=== PATIENT | male | born 1935 | race Caucasian/White ===

== ENCOUNTER 2017-07-09 21:17 | Inpatient (IN) | payer OTHER ==
[~2017-07-09] VITALS: Ht 152.4 cm; Wt 44.5 kg
[2017-07-09] MEDS ORDERED: LASIX20 MG (21:35)
[2017-07-09] MEDS ORDERED: TOPROL XL50 MG (21:36)
[2017-07-09] MEDS ORDERED: SYNTHROID50 MCG (21:36)
[2017-07-09] MEDS ORDERED: LIPITOR40 MG (21:37)
[2017-07-31] MEDS ORDERED: XOPENEX0.63 MG/3 IH (19:09)
== END 2017-07-31 19:32 | disposition home or self-care (01) | DRG 291 ==
LOC: ER 21:17 → ICU-2 07-10 13:09 → MEDI 07-10 13:09 → SEC-K 07-10 13:09 → MEDI 07-12 17:36
PROC: 3E0F7GC Introduction of Other Therapeutic Substance into Respiratory Tract, Via Natural or Artificial Opening (ICD-10-PCS; principal; 2017-07-10)
PROC: B246ZZZ Ultrasonography of Right and Left Heart (ICD-10-PCS; 2017-07-10)
PROC: 4A033R1 Measurement of Arterial Saturation, Peripheral, Percutaneous Approach (ICD-10-PCS; 2017-07-10)
PROC: BW24ZZZ Computerized Tomography (CT Scan) of Chest and Abdomen (ICD-10-PCS; 2017-07-10)
PROC: BT43ZZZ Ultrasonography of Bilateral Kidneys (ICD-10-PCS; 2017-07-12)
PROC: 4A12X4Z Monitoring of Cardiac Electrical Activity, External Approach (ICD-10-PCS; 2017-07-12)
PROC: 05HM33Z Insertion of Infusion Device into Right Internal Jugular Vein, Percutaneous Approach (ICD-10-PCS; 2017-07-13)
PROC: B543ZZA Ultrasonography of Right Jugular Veins, Guidance (ICD-10-PCS; 2017-07-13)
PROC: 0W993ZX Drainage of Right Pleural Cavity, Percutaneous Approach, Diagnostic (ICD-10-PCS; 2017-07-13)
PROC: 5A1D70Z Performance of Urinary Filtration, Intermittent, Less than 6 Hours Per Day (ICD-10-PCS; 2017-07-13)
PROC: BW21ZZZ Computerized Tomography (CT Scan) of Abdomen and Pelvis (ICD-10-PCS; 2017-07-13)
PROC: 05PYX3Z Removal of Infusion Device from Upper Vein, External Approach (ICD-10-PCS; 2017-07-14)
PROC: 05HM33Z Insertion of Infusion Device into Right Internal Jugular Vein, Percutaneous Approach (ICD-10-PCS; 2017-07-14)
PROC: BB24ZZZ Computerized Tomography (CT Scan) of Bilateral Lungs (ICD-10-PCS; 2017-07-16)
PROC: 02HV33Z Insertion of Infusion Device into Superior Vena Cava, Percutaneous Approach (ICD-10-PCS; 2017-07-18)
PROC: B54NZZZ Ultrasonography of Left Upper Extremity Veins (ICD-10-PCS; 2017-07-23)
PROC: 05PYX3Z Removal of Infusion Device from Upper Vein, External Approach (ICD-10-PCS; 2017-07-29)
PROC: 05HM33Z Insertion of Infusion Device into Right Internal Jugular Vein, Percutaneous Approach (ICD-10-PCS; 2017-07-29)
PROC: B513ZZA Fluoroscopy of Right Jugular Veins, Guidance (ICD-10-PCS; 2017-07-29)
DX: I13.2 Hypertensive heart and chronic kidney disease with heart failure and with stage 5 chronic kidney disease, or end stage renal disease (principal); N18.6 End stage renal disease; I50.33 Acute on chronic diastolic (congestive) heart failure; J18.9 Pneumonia, unspecified organism; J90 Pleural effusion, not elsewhere classified; N17.8 Other acute kidney failure; E46 Unspecified protein-calorie malnutrition; R09.02 Hypoxemia; I35.0 Nonrheumatic aortic (valve) stenosis; I34.0 Nonrheumatic mitral (valve) insufficiency; I25.10 Atherosclerotic heart disease of native coronary artery without angina pectoris; D63.1 Anemia in chronic kidney disease; D50.8 Other iron deficiency anemias; N28.89 Other specified disorders of kidney and ureter

== ENCOUNTER 2018-02-01 11:31 | Emergency (ER) | payer OTHER ==
[~2018-02-01] VITALS: Ht 152.4 cm; Wt 45.4 kg
[~2018-02-01 11:31] MED LIST: LASIX20 MG; LIPITOR40 MG; SYNTHROID50 MCG; TOPROL XL50 MG; XOPENEX0.63 MG/3 IH
[2018-02-01] MEDS ORDERED: LIPITOR20 MG PO (12:03)
[2018-02-01] MEDS ORDERED: CARVEDILOL3.125 MG PO (12:03)
[2018-02-01] MEDS ORDERED: ASPIR 8181 MG PO (12:03)
== END 2018-02-01 16:38 | disposition home or self-care (01) ==
LOC: ER 11:31
DX: S00.83XA Contusion of other part of head, initial encounter (principal); W18.39XA Other fall on same level, initial encounter; Y93.89 Activity, other specified; Y92.098 Other place in other non-institutional residence as the place of occurrence of the external cause; Y99.8 Other external cause status